=== PATIENT | female | born 1975 | race Caucasian/White ===

== ENCOUNTER → 2017-08-12 08:02 | Outpatient (CLI) | payer BC, SELFPAY ==
--- NOTE | 2017-08-12 08:05 | MM_ITS ---
MM Dig screening mamm BI w/CAD CAD Screening ORDERING PHYSICIAN : Gurpreet Cobb MD PATIENT AGE: 42 years GENDER: Female COMPARISON: Previous mammograms June 2016 mammogram and ultrasound INDICATION: Routine screening mammogram 42-year-old TECHNIQUE: Standard CC and MLO images were obtained. R2 CAD reviewed. FINDINGS: Dense heterogeneous Fibrocystic breast with fibrocystic calcifications. Mammography of significant decreased sensitivity in breast of this dense character in these features. RIGHT BREAST:There are some small new rounded densities at the deep right breast centrally and towards upper-outer quadrant. These best seen on axillary cc view and most likely due reflect slightly more prominent & variations in previously existing cyst. However ultrasound recommended to correlate. There are also some small calcifications lateral retroareolar region which are slightly more evident on today's cc view. It may merely be adenosis and fibrocystic calcifications but would recommend magnification spot view CC and 90 degree when patient returns of these small areas of developing LEFT BREAST: Dense left breast. On cc view there is a focus of additional density seen at the deep left breast labeled Y. I believe it is slightly posterior to the now smaller likely cyst previously labeled X on 2017 studies.... Ultrasound recommended to again further survey this left breast ultrasound will most certainly identify multiple cysts: The goal is to better exclude any new suspicious or solid areas among them. There is a new cluster of dense most likely benign calcifications at the lateral retroareolar region left.. However when patient returns suggest nonmagnification spot views to include this area and the nodule on the cc spot and likely the 90 degrees spot Ultrasound is useful augment/compliment to mammography in breast of this dense inhomogeneous character IMPRESSION: Difficult mammogram to evaluate due to the Dense fibrocystic breast features bilaterally. Mammography of decreased sensitivity in breasts of this character LEFT BREAST New dense at least 1 cm, ovoid density deep left breast labeled Y. Likely developing cyst. Also New cluster of likely benign benign calcifications, lateral retroareolar region. Standard spot view to include both these areas initially & to be reviewed,,, followed by ultrasound left breast RIGHT BREAST. Dense fibrocystic breast with with multiple small round densities throughout the breast some are new. These most certainly reflects cysts. Ultrasound recommended to exclude any suspicious features Also note tiny calcifications at the lateral retroareolar region labeled A and another area at the deeper breast labeled B. These are slightly more apparent today. Most likely benign fibrocystic calcifications & adenosis, but Would benefit from magnification spot view when the patient return as well . BI-RADS Category: 0 Need Additional Imaging Evaluaiton. RECOMMENDED FOLLOW-UP: IMM - IMMEDIATE FOLLOW-UP RECOMMENDED Right breast: Magnification spot views of calcifications at the the small calcifications at Area A and B Left breast. Standard Spot views of area labeled Y at deep breast, include the new benign-appearing calcifications more anteriorly at the lateral retroareolar region Bilateral breast ultrasound to evaluate more likely multiple cyst with this patient's dense breasts & fibrocystic breast disease (A letter has been sent to the patient regarding results of the study.)
== END ==
PROVIDERS: Family Provider Family Medicine; PCP Family Medicine; Visit Provider Nurse Practitioner Obstetrics & Gynecology
DX: Z12.31 Encounter for screening mammogram for malignant neoplasm of breast (principal)
CPT/HCPCS: 77067

== ENCOUNTER → 2017-10-26 10:50 | Outpatient (POV) | payer BC, SELFPAY | PROVIDERS: Visit Provider Otolaryngology | DX: Z00.00 Encounter for general adult medical examination without abnormal findings (principal) ==

== ENCOUNTER → 2017-11-23 13:57 | Outpatient (CLI) | payer BC, SELFPAY ==
--- NOTE | 2017-11-23 | MM_ITS ---
MM Dig mamm BI DX w/CAD, US breast RT complete US breast LT complete INDICATION: Follow-up abnormal mammogram ORDERING PHYSICIAN: Gurpreet Cobb MD PATIENT AGE: 42 years COMPARISON: 08/12/2017, 06/11/2016, 07/02/2016 TECHNIQUE: Bilateral problems solving views along with bilateral breast ultrasound FINDINGS: There is dense fibroglandular tissue with scattered areas of asymmetric density. This decreases the sensitivity of mammography. Correlation with clinical exam is paramount. Any palpable nodule should be managed on a clinical basis. Right breast: There are multiple clusters of calcifications in the central aspect of the right breast which have a somewhat symmetric appearance. No one group stands out as being particularly malignant appearing. Would recommend a 6 month follow-up as some of the calcifications are new. Right breast ultrasound: 9 mm cyst at 3:00 near the nipple, 8 mm cyst at 6:00 near the nipple, 6 mm cyst at 6:00 near the nipple, 9 mm cyst at 9:00 near the nipple. Multiple cysts are present behind the nipple at 12 and 10 mm. Previously one of the cysts had some increased echogenicity laterally which is no longer apparent. No suspicious ultrasound findings. Left breast: There is a large 4 x 3 cm well-circumscribed nodule in the outer aspect of the left breast consistent with a cyst. An additional density noted through this region at 6 mm. Only well-seen on the cc view. This has a probably benign mammogram appearance and is not readily apparent on ultrasound.. The appearance however is probably benign. Left breast ultrasound: 3 x 2 7 m cyst at 3:00. The borders are somewhat irregular. In the retroareolar region there is a 1.3 cm. This has some low-level echoes compared to the previous study could be due to some internal hemorrhage or infection or fibroadenoma. An 8 mm cyst is present behind the nipple as well. IMPRESSION: Dense breast tissue with scattered asymmetric densities which decreases sensitivity of mammography. There are bilateral probably benign appearing nodules. No one appearing nodule has a malignant appearance. Some of the nodules are more prominent than when compared to the previous exam. These are probably benign. Bilateral 6 month follow-up recommended.. Recommend bilateral mammographic and sonographic six-month follow-up BI-RADS Category: 3 Probably Benign Finding Short Term Follow-up RECOMMENDED FOLLOW-UP: 6M - 6 MONTH FOLLOW-UP (A letter has been sent to the patient regarding results of the study.)
== END ==
PROVIDERS: PCP Family Medicine; Visit Provider Nurse Practitioner Obstetrics & Gynecology
DX: R92.2 Inconclusive mammogram (principal); N60.19 Diffuse cystic mastopathy of unspecified breast
CPT/HCPCS: 76641; 77066

== ENCOUNTER → 2018-10-24 16:08 | Outpatient (CLI) | payer BC, SELFPAY ==
--- NOTE | 2018-10-24 16:11 | MM_ITS ---
PROCEDURE: MM DIG SCREENING MAMM BI W/CAD CLINICAL INDICATION: Routine Screening breast cancer there is no personal or family history of breast cancer COMPARISON: DMDXUAVR DIG MAMM-DX UNI A/VW-RT W/CAD from 07/02/2016 [facility] MM Dig screening mamm BI w/CAD from 08/12/2017 [facility] MM Dig mamm BI DX w/CAD from 11/23/2017 TECHNIQUE: Standard CC and MLO images were obtained. R2 CAD reviewed. FINDINGS: There is a diffusely dense and heterogenic parenchymal pattern lessening the sensitivity of mammography. The findings of bilateral symmetrical. There are scattered microcalcifications in each breast which appear to be typical of sclerosing adenosis. There are no suspicious microcalcifications. There are fatty replaced nodes in both axilla. IMPRESSION: Diffusely dense parenchymal pattern with no suspicious lesion seen BI-RAD Category: 2 Benign Finding(s) FOLLOW-UP: 1YR 1 Year Follow-up (A letter has been sent to the patient regarding results of the study.) Dictated by: Dr. Iain Leong MD 10/25/2018 10:25 Signed by: <Electronically signed by Dr. Iain Leong MD in [place]> 10/25/2018 10:25
== END ==
PROVIDERS: PCP Nurse Practitioner Obstetrics & Gynecology; Visit Provider Nurse Practitioner Obstetrics & Gynecology
DX: Z12.31 Encounter for screening mammogram for malignant neoplasm of breast (principal)
CPT/HCPCS: 77067

== ENCOUNTER → 2019-12-06 11:35 | Outpatient (CLI) | payer BC, SELFPAY | PROVIDERS: PCP Physician Assistant; Visit Provider Internal Medicine Adolescent Medicine | DX: Z03.818 Encounter for observation for suspected exposure to other biological agents ruled out (principal) | CPT/HCPCS: U0003 ==

== ENCOUNTER 2020-07-02 16:27 | Emergency (ER) | payer BC, SELFPAY ==
--- NOTE | 2020-07-02 16:38 | XR_ITS ---
PROCEDURE INFORMATION: Exam: XR Right Hand Exam date and time: 07/02/2020 4:38 PM Age: 45 years old Clinical indication: Pain and injury or trauma; Other: PT shut RT 3rd distal finger in car door; Crushing; Right; Middle finger; Finger(s); Injury date: 07/02/2020; Injury details: PT closed RT 3rd distal finger in car door this am ? tuft FX; Patient HX: Smashed finger in car door TECHNIQUE: Imaging protocol: XR Right hand. Views: 3 or more views. COMPARISON: No relevant prior studies available. FINDINGS: Bones/joints: Nondisplaced fracture of the distal tuft of the distal phalanx of the middle finger. No other fractures. There is no evidence of joint malalignment or dislocation. Soft tissues: There are no soft tissue masses or fluid collections. IMPRESSION: 1. Nondisplaced fracture of the distal tuft of the distal phalanx of the middle finger. 2. No evidence of acute dislocation.
[2020-07-02 16:46] VITALS: BP 131/84; PULSE 86; RESP 19; TEMP 36.9; O2SAT 98; BMI 30.9
--- NOTE | 2020-07-02 17:13 | HMH.EDUTC ---
[facility] [place] Disposition Clinical Impression: Closed fracture of tuft of distal phalanx of finger Subungual hematoma of digit of hand Qualifiers: Encounter type: initial encounter Qualified Code(s): S60.10XA - Contusion of unspecified finger with damage to nail, initial encounter Disposition: Home, Self-Care Condition on Discharge: Good Instructions: DI for Finger Fracture, DI for Subungual Hematoma Additional Instructions: Change bandage daily. Fingertip splint for protection. Elevation to help reduce pain. Ice to help reduce pain and swelling. Follow-up with orthopedics, Dr. Phipps, call tomorrow to make appointment. Additional instructions for CONTROLLED SUBSTANCES: You have been prescribed a medication that is a controlled substance. Controlled substances include pain medications known as opiates and sedative nerve medications known as benzodiazepines. Tramadol, fioricet, and gabapentin are also controlled substances. Some common opiates include: Codeine (such as Tylenol #3) Hydrocodone (Vicodin, Lortab, Lorcet, [place]) Oxycodone (Percocet, Percodan, Oxycodone, Oxy IR) Some common benzodiazepines include: Diazepam (Valium) Lorazepam (Ativan) Alprazolam (Xanax) Clonazepam (Klonopin) Oxazepam (Serax) All of these controlled substances are highly addictive and frequently abused. Misuse can and frequently does lead to addiction as well as overdose and . Medication should be stored in a locked cabinet or other secure storage unit. Do not store the medication in a motor vehicle. Short term supplies, 3 days or less, are prescribed because of the highly addictive nature of the medication. Any of the controlled substance medication NOT taken should be disposed of properly and NOT SAVED. The recommended method of disposing of unused medications is: Place the medicines in a sealable plastic bag. If the medicine is a solid, crush it or add water to dissolve it. Add something undesirable (cat litter, coffee grounds, etc.) Dispose of sealed bag in household trash Do not flush or pour unused medicines down a sink or drain. Controlled substances should not be shared, given away or sold. Because of the addictive nature and frequent abuse, these medications are sometimes stolen. These medications should be kept in a safe place where they cannot be stolen. Do not keep them in your car or purse. Lost or stolen prescriptions for controlled substances WILL NOT BE REFILLED in this emergency department, regardless of whether a police report was filed. Prescriptions: Hydrocod/Acet 5/325 mg [[place] 5/325mg tablet] 1 tab PO Q6HP PRN #10 tab PRN Reason: Pain Transmission Status: Received by [facility] Referrals: Bertha Gonzalez [Primary Care Provider] - As needed Flip Phipps MD [Staff Physician] - Time of Disposition: 17:31 Medical Decision Making - Mamadou Inquiry Pt receiving controlled substance: No Mamadou was queried for this patient: No Vital Signs: 07/02/20 16:46 07/02/20 17:17 07/02/20 17:28 Temperature 98.4 F Temperature Source Oral Pulse Rate [Right Brachial] 86 99 H 98 H Respiratory Rate 19 18 16 Blood Pressure [Right Arm] 131/84 168/101 H 150/89 H Blood Pressure Mean [Right Arm] 99 123 109 Blood Pressure Source [Right Arm] Automatic Cuff Automatic Cuff Automatic Cuff Blood Pressure Position [Right Arm] Sitting Sitting Sitting 02 Sat by Pulse Oximetry 98 100 100 Oxygen Delivery Method Room Air Room Air Room Air - Radiology Data #1 Image(s): Hand Image Reviewed: Yes I have reviewed radiologist's interpretation IMPRESSION: 1. Nondisplaced fracture of the distal tuft of the distal phalanx of the middle finger. 2. No evidence of acute dislocation. Medical Decision Narrative: Patient has broken acrylic nail on right middle finger multiple cracked like areas noted in acrylic nail and base of nailbed dark in color with bruising and swelling noted to finger Dried
[2020-07-02 17:17] VITALS: BP 168/101; PULSE 99; RESP 18; O2SAT 100; BMI 308936.9
[2020-07-02 17:28] VITALS: BP 150/89; PULSE 98; RESP 16; O2SAT 100
--- NOTE | 2020-07-02 17:41 | HMH.EDGENADL ---
ED Disposition Clinical Impression: Closed fracture of tuft of distal phalanx of finger Subungual hematoma of digit of hand Qualifiers: Encounter type: initial encounter Qualified Code(s): S60.10XA - Contusion of unspecified finger with damage to nail, initial encounter Disposition: Home, Self-Care Condition on Discharge: Good Instructions: DI for Finger Fracture, DI for Subungual Hematoma Additional Instructions: Change bandage daily. Fingertip splint for protection. Elevation to help reduce pain. Ice to help reduce pain and swelling. Follow-up with orthopedics, Dr. Phipps, call tomorrow to make appointment. Additional instructions for CONTROLLED SUBSTANCES: You have been prescribed a medication that is a controlled substance. Controlled substances include pain medications known as opiates and sedative nerve medications known as benzodiazepines. Tramadol, fioricet, and gabapentin are also controlled substances. Some common opiates include: Codeine (such as Tylenol #3) Hydrocodone (Vicodin, Lortab, Lorcet, [place]) Oxycodone (Percocet, Percodan, Oxycodone, Oxy IR) Some common benzodiazepines include: Diazepam (Valium) Lorazepam (Ativan) Alprazolam (Xanax) Clonazepam (Klonopin) Oxazepam (Serax) All of these controlled substances are highly addictive and frequently abused. Misuse can and frequently does lead to addiction as well as overdose and . Medication should be stored in a locked cabinet or other secure storage unit. Do not store the medication in a motor vehicle. Short term supplies, 3 days or less, are prescribed because of the highly addictive nature of the medication. Any of the controlled substance medication NOT taken should be disposed of properly and NOT SAVED. The recommended method of disposing of unused medications is: Place the medicines in a sealable plastic bag. If the medicine is a solid, crush it or add water to dissolve it. Add something undesirable (cat litter, coffee grounds, etc.) Dispose of sealed bag in household trash Do not flush or pour unused medicines down a sink or drain. Controlled substances should not be shared, given away or sold. Because of the addictive nature and frequent abuse, these medications are sometimes stolen. These medications should be kept in a safe place where they cannot be stolen. Do not keep them in your car or purse. Lost or stolen prescriptions for controlled substances WILL NOT BE REFILLED in this emergency department, regardless of whether a police report was filed. Prescriptions: Hydrocod/Acet 5/325 mg [[place] 5/325mg tablet] 1 tab PO Q6HP PRN #10 tab PRN Reason: Pain Transmission Status: [facility] to [facility] Referrals: Bertha Gonzalez [Primary Care Provider] - As needed Flip Phipps MD [Staff Physician] - - Critical Care Critical Care Time: No Attestation: On 07/02/20, the high probability of a clinically significant, sudden or life threatening deterioration of the following system(s) required my full and direct attention, intervention and personal management. The time I documented below is in addition to time spent performing reported procedures but includes the following listed in this critical care notation. Medical Decision Making - Mamadou Inquiry Pt receiving controlled substance: Yes Mamadou was queried for this patient: Yes Risks and benefits of using a controlled substance: were discussed with pt by me Vital Signs: 07/02/20 16:46 07/02/20 17:17 Temperature 98.4 F Temperature Source Oral Pulse Rate [Right Brachial] 86 99 H Respiratory Rate 19 18 Blood Pressure [Right Arm] 131/84 168/101 H Blood Pressure Mean [Right Arm] 99 123 Blood Pressure Source [Right Arm] Automatic Cuff Automatic Cuff Blood Pressure Position [Right Arm] Sitting Sitting 02 Sat by Pulse Oximetry 98 100 Oxygen Delivery Method Room Air Room Air Medical Decision Narrative: The nail is attached well. I do not feel i
[2020-07-02 18:06] VITALS: BP 150/89; PULSE 98; RESP 16; TEMP 36.9; O2SAT 100
== END 2020-07-02 18:08 | disposition home or self-care (01) ==
LOC: UTC 16:43 → ER 17:17
PROVIDERS: Emergency Provider Emergency Medicine; PCP Physician Assistant
DX: S62.652A Nondisplaced fracture of middle phalanx of right middle finger, initial encounter for closed fracture (principal); S60.131A Contusion of right middle finger with damage to nail, initial encounter; V48.4XXA Person boarding or alighting a car injured in noncollision transport accident, initial encounter; Y92.89 Other specified places as the place of occurrence of the external cause; I10 Essential (primary) hypertension; E78.5 Hyperlipidemia, unspecified; K21.9 Gastro-esophageal reflux disease without esophagitis; E03.9 Hypothyroidism, unspecified; F41.8 Other specified anxiety disorders; Z79.899 Other long term (current) drug therapy
CPT/HCPCS: 11740; 73130; 99282

== ENCOUNTER → 2020-07-29 09:04 | Outpatient (CLI) | payer BC, SELFPAY ==
--- NOTE | 2020-07-29 09:04 | MM_ITS ---
PROCEDURE INFORMATION: Exam: MG Screening 3D Mammography Exam date and time: 07/29/2020 9:04 AM Age: 45 years old Clinical indication: screening mammogram TECHNIQUE: Imaging protocol: Screening tomosynthesis and 2D mammography including computer-aided detection (CAD) when performed. COMPARISON: 1. MG MM DIG SCREENING MAMM BI W/CAD 10/24/2018 4:25 PM 2. MG [facility] MM Dig mamm BI DX w/CAD 11/23/2017 3:18 PM 3. MG [facility] MM Dig screening mamm BI w/CAD 08/12/2017 8:16 AM 4. MG DMDXUAVR DIG MAMM-DX UNI A/VW-RT W/CAD 07/02/2016 3:18 PM FINDINGS: MAMMOGRAPHY: Breast composition: The breast tissue is heterogeneously dense, which may obscure small masses. Mass: Stable benign-appearing subcentimeter nodules are present in the bilateral breasts. No new or morphologically suspicious nodule has developed to suggest malignancy. Architectural distortion: No new or suspicious architectural distortion. Calcifications: benign-appearing calcifications are present. No new or suspicious cluster of microcalcifications have developed. Asymmetric density: No new or suspicious asymmetric density is present Skin thickening: None. Axillary adenopathy: None. IMPRESSION: No mammographic evidence of malignancy. Recommend annual screening mammography unless otherwise clinically indicated. ASSESSMENT: BI-RADS category 2: Benign
== END ==
PROVIDERS: PCP Physician Assistant; Visit Provider Nurse Practitioner Obstetrics & Gynecology
DX: Z12.31 Encounter for screening mammogram for malignant neoplasm of breast (principal)
CPT/HCPCS: 77063; 77067

== ENCOUNTER → 2020-10-07 16:53 | Outpatient (CLI) | payer BC, SELFPAY ==
[2020-10-07 18:22] LABS: Free T4 (Free Thyroxine) 0.84 ng/dl (0.78-2.19)
[2020-10-07 18:36] LABS: Thyroid Stimulating Hormone 0.95 uIU/mL (0.465-4.68)
[2020-10-09 11:19] LABS: Triiodothyronine (T3) Free 3.4 pg/mL (2.0-4.4)
== END ==
PROVIDERS: Visit Provider Internal Medicine
DX: E03.9 Hypothyroidism, unspecified (principal)
CPT/HCPCS: 36415; 84439; 84443; 84481